=== PATIENT | female | born 1985 | race Caucasian/White ===

== ENCOUNTER 2021-08-13 08:59 | Emergency (ER) | payer MEDICAID ==
[~2021-08-13] VITALS: Ht 157.5 cm; Wt 71.0 kg
[2021-08-13] MEDS ORDERED: prenatal (09:13)
[2021-08-13] MEDS ORDERED: iron (09:13)
[2021-08-13] MEDS: ACETAMINOPHEN 325MG TABLET PO ONE ×2 (09:30→10:23)
[2021-08-13 10:18] LABS: CLARITY URINE CLEAR (CLEAR); COLOR URINE YELLOW (YELLOW); KETONES URINE NEGATIVE (NEGATIVE); LEUKOCYTE ESTERASE URINE NEGATIVE (NEGATIVE); NITRITE URINE NEGATIVE (NEGATIVE); OCCULT BLOOD URINE 2+ (NEGATIVE); PH URINE 8.5 (4.5-8.0); PROTEIN URINE NEGATIVE (NEGATIVE); SPECIFIC GRAVITY URINE 1.017 (1.005-1.030); UROBILINOGEN URINE 0.2 E.U./dL (0.2-1.0)
[2021-08-13 10:24] LABS: BASOPHILS % 0.4 % (0.0-2.0); EOSINOPHILS % 0.7 % (0.0-5.0); HEMATOCRIT. 37.2 % (36.0-48.0); HEMOGLOBIN. 12.6 g/dL (12.0-16.0); LYMPHOCYTES % 18.8 % (20.0-50.0); MEAN CORPUSCULAR VOLUME 88.7 fL (81.0-99.0); MEAN PLATELET VOLUME 10.1 fl (7.4-10.4); MONOCYTES % 7.5 % (2.0-8.0); NEUTROPHILS % 72.6 % (40.0-76.0); PLATELET 176 x1000/uL (130-400); RED BLOOD CELL COUNT 4.19 mill/uL (4.2-5.4); RED CELL DISTRIBUTION WIDTH 14.4 % (11.6-14.6)
[2021-08-13 10:28] LABS: *AMPHETAMINES SCREEN URINE NEGATIVE (NEGATIVE); *BARBITURATES SCREEN URINE NEGATIVE (NEGATIVE); *BENZODIAZEPINES SCREEN URINE NEGATIVE (NEGATIVE); *COCAINE SCREEN URINE NEGATIVE (NEGATIVE); CANNABINOID URINE SCREEN NEGATIVE (NEGATIVE); METHADONE URINE SCREEN NEGATIVE (NEGATIVE); OPIATES URINE SCREEN NEGATIVE (NEGATIVE); PHENCYCLIDINE URINE SCREEN NEGATIVE (NEGATIVE)
[2021-08-13 10:31] LABS: CHLORIDE 107 mEq/L (98-107)
[2021-08-13 10:57] LABS: B-HCG QUANTITATIVE 48751 mIU/mL (<3)
[2021-08-13] MEDS ORDERED: ACET-2708 MT (12:39)
[2021-08-13 13:28] VITALS: BP 100/67
== END 2021-08-13 13:35 | disposition home or self-care (01) ==
LOC: ER 08:59
DX: O20.0 Threatened abortion (principal); O44.01 Complete placenta previa NOS or without hemorrhage, first trimester; Z3A.13 13 weeks gestation of pregnancy
CPT/HCPCS: 36415; 76801; 80053; 80305; 81003; 81025; 84702; 85025; 86850; 86900; 99284

== ENCOUNTER 2022-02-12 16:06 | Observation (INO) | payer MEDICAID ==
[~2022-02-12] VITALS: Ht 152.4 cm; Wt 81.2 kg
[~2022-02-12 16:06] MED LIST: ACET-2708 MT; iron; prenatal PO
== END 2022-02-12 21:25 | disposition home or self-care (01) ==
LOC: 8 EST LDRP 16:06
PROVIDERS: ADMIT Obstetrics & Gynecology; ATTEND Obstetrics & Gynecology
DX: O62.9 Abnormality of forces of labor, unspecified (principal); O36.8130 Decreased fetal movements, third trimester, not applicable or unspecified; Z3A.39 39 weeks gestation of pregnancy
CPT/HCPCS: 59025; 76805; 76818; G0378; 99281

== ENCOUNTER 2025-02-11 15:38 | Emergency (ER) | payer MEDICAID ==
[~2025-02-11] VITALS: Ht 162.6 cm; Wt 75.0 kg
[~2025-02-11 15:38] MED LIST changes: -ACET-2708 MT; -iron
[2025-02-11 15:45] VITALS: TEMP 36.8; O2SAT 100
[2025-02-11] MEDS ORDERED: ACET-2708 MT (18:36)
[2025-02-11 18:56] VITALS: BP 140/80; PULSE 89; RESP 12; O2SAT 98
== END 2025-02-11 18:57 | disposition home or self-care (01) ==
LOC: ER 15:38
DX: M25.561 Pain in right knee (principal); M62.838 Other muscle spasm; Z79.899 Other long term (current) drug therapy
CPT/HCPCS: 99283; 73560; A6449